=== PATIENT | male | born 1970 | race American Indian/Alaskan Native ===

== ENCOUNTER 2021-05-03 23:10 | Emergency (ER) | payer SELFPAY ==
[2021-05-04 01:18] VITALS: BP 96/60
--- NOTE | 2021-05-04 05:21 | Emergency Department Report ---
ED General Adult HPI - General Chief complaint: Chest Pain Stated complaint: CHEST PAIN/BODY ACHE/COUGHING BLOOD Source: patient Mode of arrival: Ambulatory Limitations: No Limitations - History of Present Illness Initial comments: Patient is a 51-year-old -[place] female with a history of asthma who presents for URI symptoms include head congestion sore throat cough is productive yellow x2 days. Patient denies suspicious travel no suspicious contacts. Patient is not COVID 19 vaccinated. Patient denies fevers chills no nausea or vomiting. She denies shortness of breath however there is nocturnal wheezing. No wheezing noted at this time. Symptoms are exacerbated by activity. Symptoms are relieved by nothing tried. Patient states she is now out of her her albuterol inhaler and requesting refill. Pt rates symptoms at 4/10 at this time. - Related Data Previous Rx's Medication Instructions Recorded Last Taken Type Albuterol Mdi (or & Nicu Only) 2 puff IH QID PRN #8.5 gram 05/04/21 Unknown Rx [ProAir HFA Inhaler] Azithromycin 500 mg PO DAILY #5 tablet 05/04/21 Unknown Rx Dexamethasone [Decadron] 6 mg PO BID 3 Days #6 tablet 05/04/21 Unknown Rx Allergies Allergy/AdvReac Type Severity Reaction Status Date / Time No Known Allergies Allergy Unverified 05/04/21 01:23 ED Review of Systems ROS: Stated complaint: CHEST PAIN/BODY ACHE/COUGHING BLOOD Other details as noted in HPI Constitutional: malaise Eyes: denies: eye pain, eye discharge, vision change ENT: throat pain, congestion Respiratory: cough, wheezing Cardiovascular: denies: chest pain, palpitations Endocrine: no symptoms reported Gastrointestinal: denies: abdominal pain, nausea, vomiting, diarrhea Genitourinary: denies: urgency, dysuria Musculoskeletal: denies: back pain, joint swelling, arthralgia Skin: denies: rash, lesions Neurological: denies: headache, weakness, paresthesias Psychiatric: denies: anxiety, depression Hematological/Lymphatic: denies: easy bleeding, easy bruising ED Past Medical Hx - Medications Home Medications: Home Medications Medication Instructions Recorded Confirmed Last Taken Type Albuterol Mdi (or & Nicu Only) 2 puff IH QID PRN #8.5 gram 05/04/21 Unknown Rx [ProAir HFA Inhaler] Azithromycin 500 mg PO DAILY #5 tablet 05/04/21 Unknown Rx Dexamethasone [Decadron] 6 mg PO BID 3 Days #6 tablet 05/04/21 Unknown Rx ED Physical Exam - General Limitations: No Limitations General appearance: alert, in no apparent distress - Head Head exam: Present: atraumatic, normocephalic - Eye Eye exam: Present: normal appearance, PERRL, EOMI Pupils: Present: normal accommodation - ENT ENT exam: Present: TM's normal bilaterally, normal external ear exam, other (bilat frontal and maxillary sinus tenderness to palpation, ) - Expanded ENT Exam Expanded Ear exam: Present: normal external inspection Throat exam: Positive: normal inspection. Negative: tonsillar erythema, tonsillar exudate - Neck Neck exam: Present: normal inspection - Respiratory Respiratory exam: Present: normal lung sounds bilaterally. Absent: respiratory distress, wheezes, rales, rhonchi, stridor, chest wall tenderness - Cardiovascular Cardiovascular Exam: Present: regular rate, normal rhythm, normal heart sounds. Absent: systolic murmur, diastolic murmur, rubs, gallop - GI/Abdominal GI/Abdominal exam: Present: soft, normal bowel sounds. Absent: distended, t enderness - Rectal Rectal exam: Present: deferred - Extremities Exam Extremities exam: Present: normal inspection, full ROM, normal capillary refill - Back Exam Back exam: Present: normal inspection, full ROM. Absent: CVA tenderness (R), CVA tenderness (L) - Neurological Exam Neurological exam: Present: alert, oriented X3, CN II-XII intact, normal gait - Psychiatric Psychiatric exam: Present: normal affect, normal mood - Skin Skin exam: Present: warm, dry, intact, normal color. Absent: rash ED Course Vital Signs 05/04/21 01:10 Temperature 100.7 F H Pulse Rate 88 Respiratory 18 Rate Blood Pressure 96/60 O2 Sat by Pulse 96 Oximetry ED Medical Decision Making - Medical Decision Making Patient has history of asthma we will treat for acute bronchitis. Patient will be DC with prescriptions, patient will follow-up with PCP in 2 to 3 days. Will self monitor for symptoms of fever and PUI. Patient verbalized agreement and understanding with discharge plan. Patient will be DC'd home in stable condition at this time. Critical care attestation.: If time is entered above; I have spent that time in minutes in the direct care of this critically ill patient, excluding procedure time. ED Disposition Clinical Impression: Bronchitis URI (upper respiratory infection) Qualifiers: URI type: unspecified viral URI Qualified Code(s): J06.9 - Acute upper respiratory infection, unspecified Disposition: TO HOME OR SELFCARE Is pt being admited?: No Does the pt Need Aspirin: No Condition: Stable Instructions: Chronic Bronchitis (ED), Upper Respiratory Infection, Adult, [id number], Acute Bronchitis, Adult Additional Instructions: Take medications as prescribed, follow up your doctor in 2-3 days, return to emergency if symptoms worsen. Prescriptions: Azithromycin 500 mg PO DAILY #5 tablet Dexamethasone [Decadron] 6 mg PO BID 3 Days #6 tablet Albuterol Mdi (or & Nicu Only) [ProAir HFA Inhaler] 2 puff IH QID PRN #8.5 gram PRN Reason: Shortness Of Breath Referrals: HARRY PICKERING MD [Staff Physician] - 3-5 Days Forms: Work/School Release Form(ED) Time of Disposition: 05:33
--- NOTE | 2021-05-04 18:04 | Electrocardiograph Report ---
[facility] Test Date: 2021-05-04 Test Time: 01:14:57 Pat Name: [facility] Department: Room: Gender: M Supervisor Type Disk Quality Control: WON : 1970 Requested By: BORIS DIAS Order Number: [id number] Reading MD: Yuli Castro Measurements Intervals Gray Rate: 84 P: 65 SC: 127 QRS: 71 QRSD: 94 T: 17 QT: 377 QTc: 447 Interpretive Statements Sinus rhythm No previous ECG available for comparison Electronically Signed On 05-04-2021 18:03:36 EDT by Yuli Castro
== END 2021-05-04 06:20 | disposition home or self-care (01) ==
LOC: ED 23:10
DX: J06.9 Acute upper respiratory infection, unspecified (principal); J40 Bronchitis, not specified as acute or chronic; Z79.899 Other long term (current) drug therapy
CPT/HCPCS: 93005; 99282